=== PATIENT | female | born 1930 | race Caucasian/White ===

== ENCOUNTER → 2016-10-16 | Outpatient (CLI) | payer MEDICARE, OTHER ==
[~2016-10-16] MED LIST: ACET-1757 PO; ALBU1.25 NEB; ALBU2.5V11 NEB; BISA10SU2 PR; CEFD300C2 PO; CYCL-259 PO; D ME PO; DIAZ5TAB4 PO; DIPH25CA61 PO; DOCU100C8 PO; ENOX30SY4 SQ; FLUT1AER INH; FOLI0.4T2 PO; GUAI5LIQ3 PO; LACT1TAB5 PO; LEVO75TA5 PO; LOPE2CAP PO; MECL-85 PO; METH125V IV; METO25TA35 PO; METR500T4 PO; MULT-208 PO; ONDA4TAB10 PO; ONDA4TAB13 SL; PITA1TAB2 PO; POLY454P4 PO; PRAV20TA2 PO; PROM25VI IM; RANI300C PO; SENN1TAB7 PO; SULF1TAB24 PO; TIZA2CAP2 PO; TIZA4CAP2 PO; TRAM50TA2 PO; VANC250C2 PO; WARF1TAB PO; [UNRECOGNIZED DRUG - OTHER] PO
== END | disposition home or self-care (01) ==
LOC: CVU 11:39
PROVIDERS: ATTEND Nurse Practitioner Family
DX: I08.3 Combined rheumatic disorders of mitral, aortic and tricuspid valves (principal); I37.1 Nonrheumatic pulmonary valve insufficiency; I25.3 Aneurysm of heart
CPT/HCPCS: 93306

== ENCOUNTER → 2016-11-10 | Outpatient (CLI) | payer MEDICARE, OTHER ==
[~2016-11-10] MED LIST changes: -CEFD300C2 PO; +CEFD300C37 PO; -METH125V IV; +METH125V16 IV
== END | disposition home or self-care (01) ==
LOC: CFH 10:31
PROVIDERS: ATTEND Family Medicine
DX: M25.511 Pain in right shoulder (principal)

== ENCOUNTER → 2016-11-26 | Outpatient (CLI) | payer MEDICARE, OTHER | END | disposition home or self-care (01) | LOC: CVU 09:13 | PROVIDERS: ATTEND Family Medicine | DX: R60.0 Localized edema (principal); R20.2 Paresthesia of skin; E78.5 Hyperlipidemia, unspecified; Z87.891 Personal history of nicotine dependence; Z85.9 Personal history of malignant neoplasm, unspecified | CPT/HCPCS: 93922 ==

== ENCOUNTER → 2017-03-03 | Outpatient (CLI) | payer MEDICARE, OTHER ==
[~2017-03-03] MED LIST changes: +DOCU100C33 PO; -DOCU100C8 PO; -METR500T4 PO; +METR500T8 PO
== END | disposition home or self-care (01) ==
LOC: RAD 16:32
PROVIDERS: ATTEND Internal Medicine
DX: R91.8 Other nonspecific abnormal finding of lung field (principal)
CPT/HCPCS: 71020

== ENCOUNTER 2017-09-04 21:12 | Inpatient (IN) | payer MEDICARE, OTHER ==
[~2017-09-04] VITALS: Ht 167.6 cm; Wt 72.7 kg
[2017-09-04] MEDS ORDERED: methylPREDNISolone SOD SUCC 125 MG/2 ML IVP ONE (21:30)
[2017-09-04] MEDS ORDERED: SODIUM CHLORIDE FLUSH 10ML SYR IVF ONE (21:30)
[2017-09-04] MEDS ORDERED: GABA300C10 PO (21:32)
[2017-09-04] MEDS ORDERED: RIVA10TA PO (21:32)
[2017-09-04] MEDS ORDERED: BENZ-17 PO (21:32)
[2017-09-04] MEDS ORDERED: CYCL5TAB PO (21:32)
[2017-09-04] MEDS ORDERED: methylPREDNISolone SOD SUCC 125 MG/2 ML ONE (21:33)
[2017-09-04 21:55] LABS: INTERNATIONAL NORMALIZED RATIO 1.03 (0.93-1.1); PROTHROMBIN TIME 10.7 Seconds (9.6-11.5)
[2017-09-04 21:56] LABS: BASOPHILS # (AUTO) 0.09 x10^3/uL (0-0.1); BASOPHILS % (AUTO) 1 % (0-1); EOSINOPHILS # (AUTO) 0.07 x10^3/uL (0-0.4); EOSINOPHILS % (AUTO) 1 % (1-7); LYMPHOCYTES # (AUTO) 3.97 x10^3/uL (1-3.4); LYMPHOCYTES % (AUTO) 36 % (22-44); MD NO; MEAN CORPUSCULAR HGB CONC 33.8 g/dL (32.4-35.8); MEAN CORPUSCULAR VOLUME 88.6 fL (80-100); MEAN PLATELET VOLUME 10.1 fL (7.4-10.4); MONOCYTES # (AUTO) 0.91 x10^3/uL (0.2-0.8); MONOCYTES % (AUTO) 8 % (2-9); NEUTROPHILS % (AUTO) 55 % (42-75); PLATELET COUNT 186 x10^3/uL (130-400); RED BLOOD COUNT 5.09 x10^6/uL (3.82-5.3); RED CELL DISTRIBUTION WIDTH 14.5 % (9.6-15.2)
[2017-09-04 21:58] LABS: ALANINE AMINOTRANSFERASE 24 U/L (12-78); ALBUMIN 3.6 g/dL (3.4-5.0); ANION GAP 11 mmol/L (5-15); CALCIUM 9.1 mg/dL (8.5-10.1); CHLORIDE 111 mmol/L (98-107); CREATININE 1.13 mg/dL (0.55-1.02)
[2017-09-04 22:02] LABS: ALKALINE PHOSPHATASE 54 U/L (45-117); BILIRUBIN,TOTAL 1.1 mg/dL (0.2-1.0); TROPONIN I 0.031 ng/mL (0.000-0.045)
[2017-09-04] MEDS ORDERED: OMNIPAQUE 350 MG/ML, 100ML BOTTLE ONE (22:29)
[2017-09-04] MEDS ORDERED: CEFTRIAXONE PMX 1GM/50ML 50 ML ONE (23:48)
[2017-09-05] MEDS ORDERED: CEFTRIAXONE PMX 1GM/50ML 50 ML IVPB ONE
[2017-09-05] MEDS ORDERED: AZITHROMYCIN 500 MG in SODIUM CHLORIDE 0.9% 250 ML IV ONE
[2017-09-05] MEDS ORDERED: SODIUM CHLORIDE 0.9%, 500ML IVBOLUS ONE
[2017-09-05] MEDS ORDERED: LORazepam 2 MG/ML, 1ML ONE (00:50)
[2017-09-05] MEDS ORDERED: FUROSEMIDE 40 MG/4 ML ONE (00:52)
[2017-09-05] MEDS ORDERED: BISACODYL 10 MG SUPP PR PRN (01:00)
[2017-09-05] MEDS ORDERED: FUROSEMIDE 40 MG/4 ML IV ONE (01:00)
[2017-09-05] MEDS ORDERED: MECLIZINE CHEWABLE 25 MG TAB PO PRN (01:00)
[2017-09-05] MEDS ORDERED: DOCUSATE 100 MG CAPSULE PO PRN (01:00)
[2017-09-05] MEDS ORDERED: LORazepam 2 MG/ML, 1ML IVPush ONE ×2 (01:00→01:30)
[2017-09-05] MEDS ORDERED: ONDANSETRON 2MG/ML, 2ML IVPush PRN (01:00)
[2017-09-05] MEDS ORDERED: ACETAMINOPHEN 325 MG TABLET PO PRN (01:00)
[2017-09-05] MEDS ORDERED: hydrALAzine 20 MG/ML, 1ML IVPush PRN (01:00)
[2017-09-05] MEDS ORDERED: ENALAPRILAT 1.25 MG/ML, 2ML IVPush PRN (01:00)
[2017-09-05] MEDS ORDERED: POLYETHYLENE GLYCOL 17 GM PACKET PO PRN (01:00)
[2017-09-05] MEDS ORDERED: LOPERAMIDE 2 MG CAPSULE PO PRN (01:00)
[2017-09-05] MEDS ORDERED: CEFTRIAXONE PMX 1GM/50ML 50 ML IV SCH (01:30)
[2017-09-05] MEDS: DOXYCYCLINE 100 MG in DEXTROSE 5% 250 ML IV SCH ×2 (01:50→14:40)
[2017-09-05 01:59] LABS: FREE T4 (FREE THYROXINE) 1.63 ng/dL (0.76-1.46); THYROID STIMULATING HORMONE 2.49 mIU/L (0.358-3.740)
[2017-09-05 02:10] LABS: MICROSCOPIC INDICATED
[2017-09-05 02:18] LABS: CULTURE INDICATED? NO
[2017-09-05 02:39] LABS: HEMOGLOBIN A1C 5.1 % (4.2-6.3)
[2017-09-05] MEDS ORDERED: ALBUTEROL SULFATE 2.5 MG/3 ML NPPB PRN (04:00)
[2017-09-05] MEDS ORDERED: ALBUTEROL SULFATE 2.5 MG/3 ML ONE ×2 (06:36→10:34)
[2017-09-05] MEDS: ALBUTEROL SULFATE 2.5 MG/3 ML NPPB SCH ×4 (06:39→20:00)
[2017-09-05] MEDS ORDERED: SENNA/DOCUSATE TABLET PO SCH (09:00)
[2017-09-05] MEDS: RIVAROXABAN 10 MG TABLET PO SCH (10:00)
[2017-09-05] MEDS: GABAPENTIN 300 MG CAPSULE PO SCH ×3 (10:00→21:33)
[2017-09-05] MEDS: LEVOTHYROXINE 75 MCG TABLET PO SCH (10:00)
[2017-09-05] MEDS: FOLIC ACID 1 MG TABLET PO SCH (10:00)
[2017-09-05] MEDS: MULTIVITAMIN 1 TABLET PO SCH (10:00)
[2017-09-05] MEDS: SENNA/DOCUSATE TABLET PO SCH (10:00)
[2017-09-05] MEDS ORDERED: FAMOTIDINE 20 MG/2 ML ONE (10:05)
[2017-09-05] MEDS ORDERED: FUROSEMIDE 20 MG/2 ML ONE (10:05)
[2017-09-05] MEDS: FAMOTIDINE 20 MG/2 ML IVPush SCH ×2 (10:25→21:33)
[2017-09-05] MEDS: FUROSEMIDE 20 MG/2 ML IV SCH ×2 (10:25→17:00)
[2017-09-05] MEDS ORDERED: ALBUTEROL/IPRATROPIUM 2.5MG/0.5MG, 3 ML ONE (10:35)
[2017-09-05] MEDS ORDERED: methylPREDNISolone SOD SUCC 40 MG/ML ONE (14:53)
[2017-09-05] MEDS: methylPREDNISolone SOD SUCC 40 MG/ML IV SCH ×2 (14:57→21:33)
[2017-09-05] MEDS: FLUTICASONE/VILANTEROL 100-25MCG/INH INH SCH (21:00)
[2017-09-05] MEDS: PRAVASTATIN 20 MG TABLET PO SCH (21:33)
[2017-09-05 23:14] VITALS: BP 117/72
[2017-09-06 02:49] LABS: BASOPHILS # (AUTO) 0.03 x10^3/uL (0-0.1); BASOPHILS % (AUTO) 0 % (0-1); EOSINOPHILS % (AUTO) 0 % (1-7); LYMPHOCYTES # (AUTO) 1.78 x10^3/uL (1-3.4); LYMPHOCYTES % (AUTO) 10 % (22-44); MD NO; MEAN CORPUSCULAR HEMOGLOBIN 29.6 pg (27.0-34.8); MEAN CORPUSCULAR HGB CONC 33.2 g/dL (32.4-35.8); MEAN CORPUSCULAR VOLUME 88.9 fL (80-100); MEAN PLATELET VOLUME 10.4 fL (7.4-10.4); MONOCYTES # (AUTO) 0.65 x10^3/uL (0.2-0.8); MONOCYTES % (AUTO) 4 % (2-9); NEUTROPHILS # (AUTO) 14.99 x10^3/uL (1.8-6.8); NEUTROPHILS % (AUTO) 86 % (42-75); PLATELET COUNT 235 x10^3/uL (130-400); RED BLOOD COUNT 5.06 x10^6/uL (3.82-5.3); RED CELL DISTRIBUTION WIDTH 14.2 % (9.6-15.2)
[2017-09-06] MEDS: DOXYCYCLINE 100 MG in DEXTROSE 5% 250 ML IV SCH ×2 (02:54→13:21)
[2017-09-06 02:58] LABS: ALBUMIN 3.7 g/dL (3.4-5.0); ANION GAP 11 mmol/L (5-15); CALCIUM 8.8 mg/dL (8.5-10.1); CHLORIDE 109 mmol/L (98-107)
[2017-09-06 03:01] LABS: ALANINE AMINOTRANSFERASE 39 U/L (12-78); ALKALINE PHOSPHATASE 50 U/L (45-117); BILIRUBIN,TOTAL 0.7 mg/dL (0.2-1.0); CHOL/HDL RATIO 3.9; CHOLESTEROL, TOTAL 174 mg/dL (140-239); CREATININE 1.33 mg/dL (0.55-1.02); HDL CHOL % 26 % (28-40); HDL CHOLESTEROL (DIRECT) 45 mg/dL (40-60); LDL CHOLESTEROL,CALCULATED 101 mg/dL (54-169); LDL/HDL RATIO 2.2 (0.5-3.0); TOTAL PROTEIN 7.1 g/dL (6.4-8.2); TRIGLYCERIDES 142 mg/dL (50-200); VLDL CHOLESTEROL 28 mg/dL (0-25)
[2017-09-06] MEDS: CEFTRIAXONE 1,000 MG in DEXTROSE 5% 50 ML IV SCH (03:52)
[2017-09-06 04:00] VITALS: BP 138/97
[2017-09-06] MEDS: methylPREDNISolone SOD SUCC 40 MG/ML IV SCH ×3 (06:21→21:26)
[2017-09-06] MEDS: FUROSEMIDE 20 MG/2 ML IV SCH ×2 (06:39→17:08)
[2017-09-06] MEDS: ALBUTEROL SULFATE 2.5 MG/3 ML NPPB SCH ×3 (06:50→20:08)
[2017-09-06] MEDS: RIVAROXABAN 10 MG TABLET PO SCH (08:07)
[2017-09-06] MEDS: MULTIVITAMIN 1 TABLET PO SCH (08:07)
[2017-09-06] MEDS: SENNA/DOCUSATE TABLET PO SCH (08:07)
[2017-09-06] MEDS: LEVOTHYROXINE 75 MCG TABLET PO SCH (08:07)
[2017-09-06] MEDS: GABAPENTIN 300 MG CAPSULE PO SCH ×3 (08:07→21:26)
[2017-09-06] MEDS: FOLIC ACID 1 MG TABLET PO SCH (08:07)
[2017-09-06] MEDS: FAMOTIDINE 20 MG/2 ML IVPush SCH ×2 (08:07→21:26)
[2017-09-06] MEDS ORDERED: FUROSEMIDE 20 MG/2 ML IV ONE (09:00)
[2017-09-06] MEDS: FLUTICASONE/VILANTEROL 100-25MCG/INH INH SCH (21:00)
[2017-09-06] MEDS: PRAVASTATIN 20 MG TABLET PO SCH (21:26)
[2017-09-07] MEDS: DOXYCYCLINE 100 MG in DEXTROSE 5% 250 ML IV SCH ×2 (01:37→16:37)
[2017-09-07 04:00] VITALS: BP 112/78
[2017-09-07] MEDS: CEFTRIAXONE 1,000 MG in DEXTROSE 5% 50 ML IV SCH (04:09)
[2017-09-07 04:30] LABS: ANION GAP 10 mmol/L (5-15); CALCIUM 8.5 mg/dL (8.5-10.1); CHLORIDE 103 mmol/L (98-107)
[2017-09-07] MEDS: methylPREDNISolone SOD SUCC 40 MG/ML IV SCH ×3 (06:34→21:51)
[2017-09-07] MEDS: ALBUTEROL SULFATE 2.5 MG/3 ML NPPB SCH ×4 (07:00→19:09)
[2017-09-07] MEDS: FAMOTIDINE 20 MG/2 ML IVPush SCH ×2 (08:53→19:36)
[2017-09-07] MEDS: FUROSEMIDE 20 MG/2 ML IV SCH ×2 (08:53→16:45)
[2017-09-07] MEDS: MULTIVITAMIN 1 TABLET PO SCH (08:54)
[2017-09-07] MEDS: LEVOTHYROXINE 75 MCG TABLET PO SCH (08:54)
[2017-09-07] MEDS: FOLIC ACID 1 MG TABLET PO SCH (08:54)
[2017-09-07] MEDS: RIVAROXABAN 10 MG TABLET PO SCH (08:54)
[2017-09-07] MEDS: SENNA/DOCUSATE TABLET PO SCH (08:54)
[2017-09-07] MEDS: GABAPENTIN 300 MG CAPSULE PO SCH ×3 (08:54→19:36)
[2017-09-07] MEDS ORDERED: GUAIFENESIN 100 MG/5 ML, 10ML UDC PO PRN (09:30)
[2017-09-07] MEDS: PRAVASTATIN 20 MG TABLET PO SCH (19:36)
[2017-09-07] MEDS: FLUTICASONE/VILANTEROL 100-25MCG/INH INH SCH (21:52)
[2017-09-08] MEDS: ALBUTEROL SULFATE 2.5 MG/3 ML NPPB SCH ×5 (00:23→19:10)
[2017-09-08] MEDS: DOXYCYCLINE 100 MG in DEXTROSE 5% 250 ML IV SCH ×2 (01:16→12:49)
[2017-09-08 04:00] VITALS: BP 108/66
[2017-09-08] MEDS: CEFTRIAXONE 1,000 MG in DEXTROSE 5% 50 ML IV SCH (04:15)
[2017-09-08 04:27] LABS: BASOPHILS # (AUTO) 0.01 x10^3/uL (0-0.1); BASOPHILS % (AUTO) 0 % (0-1); EOSINOPHILS % (AUTO) 0 % (1-7); LYMPHOCYTES # (AUTO) 0.83 x10^3/uL (1-3.4); LYMPHOCYTES % (AUTO) 7 % (22-44); MD NO; MEAN CORPUSCULAR HEMOGLOBIN 29.6 pg (27.0-34.8); MEAN CORPUSCULAR HGB CONC 33.5 g/dL (32.4-35.8); MEAN CORPUSCULAR VOLUME 88.4 fL (80-100); MEAN PLATELET VOLUME 10.1 fL (7.4-10.4); MONOCYTES # (AUTO) 0.49 x10^3/uL (0.2-0.8); MONOCYTES % (AUTO) 4 % (2-9); NEUTROPHILS # (AUTO) 11.21 x10^3/uL (1.8-6.8); NEUTROPHILS % (AUTO) 89 % (42-75); PLATELET COUNT 195 x10^3/uL (130-400); RED CELL DISTRIBUTION WIDTH 14.3 % (9.6-15.2)
[2017-09-08 04:46] LABS: ANION GAP 10 mmol/L (5-15); CALCIUM 8.1 mg/dL (8.5-10.1); CHLORIDE 101 mmol/L (98-107)
[2017-09-08 04:48] LABS: CREATININE 1.32 mg/dL (0.55-1.02)
[2017-09-08] MEDS: methylPREDNISolone SOD SUCC 40 MG/ML IV SCH ×3 (06:35→21:00)
[2017-09-08] MEDS: MULTIVITAMIN 1 TABLET PO SCH (09:05)
[2017-09-08] MEDS: RIVAROXABAN 10 MG TABLET PO SCH (09:05)
[2017-09-08] MEDS: LEVOTHYROXINE 75 MCG TABLET PO SCH (09:05)
[2017-09-08] MEDS: GABAPENTIN 300 MG CAPSULE PO SCH ×3 (09:05→21:00)
[2017-09-08] MEDS: SENNA/DOCUSATE TABLET PO SCH (09:06)
[2017-09-08] MEDS: FUROSEMIDE 20 MG/2 ML IV SCH ×2 (09:06→16:59)
[2017-09-08] MEDS: FOLIC ACID 1 MG TABLET PO SCH (09:06)
[2017-09-08] MEDS: FLUTICASONE/VILANTEROL 100-25MCG/INH INH SCH (21:00)
[2017-09-08] MEDS ORDERED: FAMOTIDINE 20 MG/2 ML IVPush SCH (21:00)
[2017-09-08] MEDS: PRAVASTATIN 20 MG TABLET PO SCH (21:00)
[2017-09-09] MEDS: DOXYCYCLINE 100 MG in DEXTROSE 5% 250 ML IV SCH (01:29)
[2017-09-09] MEDS: CEFTRIAXONE 1,000 MG in DEXTROSE 5% 50 ML IV SCH (04:00)
[2017-09-09 04:15] VITALS: BP 111/80
[2017-09-09] MEDS: methylPREDNISolone SOD SUCC 40 MG/ML IV SCH (06:00)
[2017-09-09] MEDS: ALBUTEROL SULFATE 2.5 MG/3 ML NPPB SCH ×3 (07:00→15:00)
[2017-09-09] MEDS: FUROSEMIDE 20 MG/2 ML IV SCH (09:00)
[2017-09-09] MEDS: GABAPENTIN 300 MG CAPSULE PO SCH ×3 (10:04→20:08)
[2017-09-09] MEDS: RIVAROXABAN 10 MG TABLET PO SCH (10:04)
[2017-09-09] MEDS: MULTIVITAMIN 1 TABLET PO SCH (10:04)
[2017-09-09] MEDS: SENNA/DOCUSATE TABLET PO SCH (10:04)
[2017-09-09] MEDS: LEVOTHYROXINE 75 MCG TABLET PO SCH (10:04)
[2017-09-09] MEDS: FOLIC ACID 1 MG TABLET PO SCH (10:05)
[2017-09-09] MEDS: QUETIAPINE 25MG TABLET PO SCH ×2 (10:08→20:07)
[2017-09-09 11:24] LABS: ANION GAP 10 mmol/L (5-15); CALCIUM 8.1 mg/dL (8.5-10.1); CHLORIDE 99 mmol/L (98-107); CREATININE 1.37 mg/dL (0.55-1.02)
[2017-09-09] MEDS: FUROSEMIDE 20 MG TABLET PO SCH (16:22)
[2017-09-09] MEDS: PRAVASTATIN 20 MG TABLET PO SCH (20:07)
[2017-09-09] MEDS: CEFDINIR 300 MG CAPSULE PO SCH (20:07)
[2017-09-09] MEDS: FAMOTIDINE 20 MG TABLET PO SCH (20:07)
[2017-09-09] MEDS: DOXYCYCLINE 100MG CAP PO SCH (20:07)
[2017-09-09] MEDS: FLUTICASONE/VILANTEROL 100-25MCG/INH INH SCH (20:08)
[2017-09-09 20:22] VITALS: BP 116/72
[2017-09-10] MEDS ORDERED: OXYcodone/APAP 5/325MG TABLET PO PRN
[2017-09-10 00:43] VITALS: BP 97/62
[2017-09-10 08:20] VITALS: BP 110/70
[2017-09-10] MEDS: RIVAROXABAN 10 MG TABLET PO SCH (09:36)
[2017-09-10] MEDS: FUROSEMIDE 20 MG TABLET PO SCH (09:37)
[2017-09-10] MEDS: DOXYCYCLINE 100MG CAP PO SCH (09:37)
[2017-09-10] MEDS: GABAPENTIN 300 MG CAPSULE PO SCH (09:37)
[2017-09-10] MEDS: FAMOTIDINE 20 MG TABLET PO SCH (09:37)
[2017-09-10] MEDS: CEFDINIR 300 MG CAPSULE PO SCH (09:37)
[2017-09-10] MEDS: QUETIAPINE 25MG TABLET PO SCH (09:38)
[2017-09-10] MEDS: FOLIC ACID 1 MG TABLET PO SCH (09:40)
[2017-09-10] MEDS: MULTIVITAMIN 1 TABLET PO SCH (09:41)
[2017-09-10] MEDS: LEVOTHYROXINE 75 MCG TABLET PO SCH (09:41)
[2017-09-10] MEDS: SENNA/DOCUSATE TABLET PO SCH (09:41)
== END 2017-09-10 14:05 | disposition hospice, home (50) | DRG 291 ==
LOC: ED 22:19 → EDIP 09-05 00:15 → CCU 09-05 13:35 → EDIP 09-05 13:35 → CCU 09-05 15:08 → 3NW 09-09 18:03
PROVIDERS: ADMIT Internal Medicine; ATTEND Internal Medicine
PROC: 5A09357 Assistance with Respiratory Ventilation, Less than 24 Consecutive Hours, Continuous Positive Airway Pressure (ICD-10-PCS; principal; 2017-09-05)
DX: I11.0 Hypertensive heart disease with heart failure (principal); J96.21 Acute and chronic respiratory failure with hypoxia; N17.0 Acute kidney failure with tubular necrosis; J18.9 Pneumonia, unspecified organism; G93.40 Encephalopathy, unspecified; E87.2 Acidosis; I27.82 Chronic pulmonary embolism; I48.0 Paroxysmal atrial fibrillation; J44.0 Chronic obstructive pulmonary disease with (acute) lower respiratory infection; J44.1 Chronic obstructive pulmonary disease with (acute) exacerbation; M48.56XA Collapsed vertebra, not elsewhere classified, lumbar region, initial encounter for fracture; J98.11 Atelectasis; R65.10 Systemic inflammatory response syndrome (SIRS) of non-infectious origin without acute organ dysfunction; I50.23 Acute on chronic systolic (congestive) heart failure; Z51.5 Encounter for palliative care; E03.9 Hypothyroidism, unspecified; E78.5 Hyperlipidemia, unspecified; F03.90 Unspecified dementia, unspecified severity, without behavioral disturbance, psychotic disturbance, mood disturbance, and anxiety; G89.4 Chronic pain syndrome; I34.0 Nonrheumatic mitral (valve) insufficiency; I34.1 Nonrheumatic mitral (valve) prolapse; Z66 Do not resuscitate; Z79.01 Long term (current) use of anticoagulants; Z87.891 Personal history of nicotine dependence; Z90.710 Acquired absence of both cervix and uterus; Z99.81 Dependence on supplemental oxygen; Z88.6 Allergy status to analgesic agent; Z88.8 Allergy status to other drugs, medicaments and biological substances
CPT/HCPCS: 36415; 36600; 51702; 71045; 71275; 80048; 80053; 80061; 81001; 82607; 82803; 83036; 83605; 83735; 83880; 84439; 84443; 84484; 85025; 85610; 85730; 87040; 87070; 87081; 87205; 93005; 93306; 94640; 94660; 96365; 96366; 96368; 96375; J0456; J0696; J1940; J2405; J7060; J7613; Q9967; J2060; J2920; J2930; J7040; J7050; J7512; S0028